=== PATIENT | male | born 1940 | race Caucasian/White ===

== ENCOUNTER 2018-10-30 12:50 | Emergency (ER) | payer MEDICARE, OTHER ==
[~2018-10-30] VITALS: Ht 172.7 cm; Wt 81.6 kg
--- NOTE | 2018-10-30 13:01 | NUR ---
ED Nurse Note: patient does not recall his meds.
[2018-10-30 13:02] VITALS: BP 146/70
--- NOTE | 2018-10-30 13:27 | Emergency Room Report ---
History of Present Illness General Chief Complaint: Eye Problems Source: Patient Present Illness HPI 78-year-old male presents to the emergency department complaining of erythema of the left eye 2 days with some discharge and difficulty opening his eyes in the morning. he denies foreign body sensation, pain, is in vision or loss of vision. Patient reports he also has been experiencing a persistent cough this past week with moderate nasal congestion. Patient denies fevers or chills he denies recent travel or ill contacts. Patient is up-to-date with his vaccinations including pneumococcal vaccination. He has been taking Mucinex [id number] without relief. Patient denies any additional aggravating or relieving factors. Allergies: Coded Allergies: No Known Allergies (Unverified , 10/30/18) Patient History Past Medical History: see triage record Past Surgical History: none Pertinent Family History: none Immunizations: UTD Reviewed Nursing Documentation: PMH: Agreed; PSxH: Agreed Nursing Documentation-PMH Past Medical History: No History, Except For Hx Hypertension: Yes Review of Systems All Other Systems: negative except mentioned in HPI Physical Exam Vital Signs Date Time Temp Pulse Resp B/P (MAP) Pulse Ox O2 Delivery O2 Flow Rate FiO2 10/30/18 12:54 98.1 63 16 146/70 96 Room Air Sp02 EP Interpretation: reviewed, normal General Appearance: no apparent distress, alert, GCS 15, non-toxic Head: normocephalic, atraumatic Eyes: bilateral eye normal inspection, bilateral eye PERRL ENT: hearing grossly normal, normal voice Neck: full range of motion Respiratory: chest non-tender, lungs clear, normal breath sounds, speaking full sentences Cardiovascular #1: regular rate, rhythm, no edema Gastrointestinal: normal bowel sounds, non tender, soft Rectal: deferred Genitourinary: normal inspection Musculoskeletal: back normal, gait/station normal, normal range of motion, non- tender Neurologic: alert, oriented x3, responsive, motor strength/tone normal, sensory intact, speech normal, grossly normal Psychiatric: judgement/insight normal Skin: normal color, no rash, warm/dry, well hydrated Lymphatic: no adenopathy Medical Decision Making PA Attestation Dr. Suarez is my supervising physician whom pt. management has been discussed with. Diagnostic Impression: Primary Impression: Bacterial conjunctivitis of left eye Additional Impression: Upper respiratory infection, viral ER Course 78-year-old male presents to the emergency department complaining of erythema of the left eye 2 days with some discharge and difficulty opening his eyes in the morning. he denies foreign body sensation, pain, is in vision or loss of vision. Patient reports he also has been experiencing a persistent cough this past week with moderate nasal congestion. Patient denies fevers or chills he denies recent travel or ill contacts. Patient is up-to-date with his vaccinations including pneumococcal vaccination. He has been taking Mucinex [id number] without relief. Patient denies any additional aggravating or relieving factors. Ddx considered but are not limited to: corneal abrasion, acute glaucoma, globe rupture, FB, Corneal Ulcer, conjunctivitis. Iridis, orbital cellulitis,keratitis , sinusitis Vital signs: are WNL, pt. is afebrile H&PE are most consistent with: bacterial conjunctivitis, and URI ORDERS: none at this time. ED INTERVENTIONS: none at this time. DISCHARGE: At this time pt. is stable for d/c to home. Will provide printed patient care instructions, and any necessary prescriptions. Care plan and follow up instructions have been discussed with the patient prior to discharge. Last Vital Signs Date Time Temp Pulse Resp B/P (MAP) Pulse Ox O2 Delivery O2 Flow Rate FiO2 10/30/18 13:02 98.1 78 16 146/70 96 Room Air Disposition: HOME, SELF-CARE Condition: Stable Scripts Unable to Obtain Active Prescriptions or Reported Meds Patient Instructions: Bacterial Conjunctivitis, [id number], Upper Respiratory Infection, Adult, Jfqy-[id number] Additional Instructions: Take medications as directed. Follow up with a Primary Care Provider in 3-5 days, even if your symptoms have resolved. --Please review list of primary care clinics, if you do not already have a primary care provider Return sooner to ED if new symptoms occur, or current symptoms become worse. Do not drink alcohol, drive, or operate heavy machinery while taking Cough Syrup as this may cause drowsiness. - Please note that this Emergency Department Report was dictated using [employer] quality technician technology software, occasionally this can lead to erroneous entry secondary to interpretation by the dictation equipment. Kaila Camacho Oct 30, 2018 13:27
[2018-10-30] MEDS ORDERED: POLYTRIM EYE DR10 M1 OP (13:29)
[2018-10-30] MEDS ORDERED: ZYRTEC-D TABLE1 EACH ORAL (13:29)
[2018-10-30] MEDS ORDERED: PROMETHAZINE-C118 M1 ORAL (13:29)
--- NOTE | 2018-10-30 13:35 | NUR ---
ED Nurse Note:pt. came with left eye blurry vision and redness, visual acuity was done
[2018-10-30 13:40] VITALS: BP 146/70
--- NOTE | 2018-10-30 13:41 | NUR ---
ED Nurse Note:pt. received d/c instructions with prescriptions and lef tER with steady gait and his spouse
== END 2018-10-30 14:49 | disposition home or self-care (01) ==
LOC: EMR 13:25
DX: H10.9 Unspecified conjunctivitis (principal); B96.89 Other specified bacterial agents as the cause of diseases classified elsewhere; J06.9 Acute upper respiratory infection, unspecified; B34.9 Viral infection, unspecified; I10 Essential (primary) hypertension
CPT/HCPCS: 99282